=== PATIENT | female | born 1960 | race Caucasian/White ===

== ENCOUNTER 2016-05-23 20:09 | Emergency (ER) | payer OTHER ==
[~2016-05-23] VITALS: Ht 165.1 cm; Wt 63.6 kg
[~2016-05-23 20:09] MED LIST: ESTRACE 1MG1 MG/TAB PO; LORTAB 5/500 501 TAB PO
[2016-05-23 20:17] VITALS: TEMP 98.5
[2016-05-23 20:54] LABS: HEMATOCRIT 37.5 % (37.0-47.0); HEMOGLOBIN 12.7 g/dl (12.5-16.0); MEAN CELL VOLUME 90 fl (80.0-100.0); MEAN CORPUSCULAR HEMOGLOBIN 31 pg (27.0-31.0); MEAN CORPUSCULAR HGB CONC 34 g/dl (33.0-37.0); MEAN PLATELET VOLUME 9.4 fl (7.4-10.4); PLATELET COUNT 140 K/mm3 (130-400); RED BLOOD COUNT 4.17 M/mm3 (4.10-5.30); REDCELL DISTRIBUTION WIDTH-CV 13.1 % (11.5-14.5); WHITE BLOOD COUNT 2.1 K/mm3 (4.8-10.8)
[2016-05-23 20:58] LABS: ADD PATHOLOGY DIFF REVIEW NO
[2016-05-23 21:10] LABS: ALBUMIN 4.3 gm/dL (3.5-5.0); BILIRUBIN,TOTAL 0.9 mg/dL (0.0-1.0); CALCIUM 9.2 mg/dL (8.4-10.2); CREATININE, serum 0.66 mg/dL (0.52-1.25); POTASSIUM 3.5 mmol/L (3.4-5.0); TOTAL PROTEIN 7.5 gm/dL (6.4-8.2)
[2016-05-23 21:14] LABS: BAND 27 % (0-10); NEUTROPHILS 24 % (42.0-75.2); PLATELET ESTIMATE NORMAL (NORMAL); TOTAL CELLS COUNTED 100
[2016-05-23] MEDS ORDERED: ZOFRAN ODT4 MG PO (21:57)
[2016-05-23 23:04] VITALS: BP 112/67; PULSE 58
== END 2016-05-23 23:04 | disposition home or self-care (01) ==
LOC: COL.ER 20:09
PROVIDERS: Family Medicine
DX: J10.89 Influenza due to other identified influenza virus with other manifestations (principal); E86.0 Dehydration
CPT/HCPCS: J1885; J2550; J7030

== ENCOUNTER 2017-03-14 14:17 | Emergency (ER) | payer OTHER ==
[~2017-03-14] VITALS: Ht 165.1 cm; Wt 63.6 kg
[~2017-03-14 14:17] MED LIST changes: +ZOFRAN ODT4 MG PO
[2017-03-14 14:19] VITALS: BP 132/75; PULSE 65; TEMP 99.2
== END 2017-03-14 16:05 | disposition home or self-care (01) ==
LOC: COL.ER 14:17
DX: S96.912A Strain of unspecified muscle and tendon at ankle and foot level, left foot, initial encounter (principal); S86.811A Strain of other muscle(s) and tendon(s) at lower leg level, right leg, initial encounter; W20.8XXA Other cause of strike by thrown, projected or falling object, initial encounter; Y92.009 Unspecified place in unspecified non-institutional (private) residence as the place of occurrence of the external cause

== ENCOUNTER 2017-12-22 11:00 | Emergency (ER) | payer OTHER ==
[~2017-12-22] VITALS: Ht 165.1 cm; Wt 66.8 kg
[2017-12-22 11:06] VITALS: BP 145/84; PULSE 64; TEMP 98.8
[2017-12-22] MEDS ORDERED: TYLENOL W/COD1 UDTAB PO (12:32)
== END 2017-12-22 12:42 | disposition home or self-care (01) ==
LOC: COL.ER 11:00
DX: S39.012A Strain of muscle, fascia and tendon of lower back, initial encounter (principal); V86.59XA Driver of other special all-terrain or other off-road motor vehicle injured in nontraffic accident, initial encounter

== ENCOUNTER 2018-05-13 13:39 | Emergency (ER) | payer BC ==
[~2018-05-13] VITALS: Ht 165.1 cm; Wt 67.3 kg
[~2018-05-13 13:39] MED LIST changes: +TYLENOL W/COD1 UDTAB PO
[2018-05-13 14:14] LABS: BASO % 0.3 % (0.0-2.0); EOS % 0.3 % (0-4.0); GRAN # 6.9 (1.4-6.5); GRAN % 78.3 % (42.2-75.2); HEMATOCRIT 39.5 % (37.0-47.0); HEMOGLOBIN 13.1 g/dl (12.5-16.0); LYMPH # 1.4 (1.2-3.4); LYMPH % 16.3 % (20.0-51.0); MEAN CELL VOLUME 93 fl (80.0-100.0); MEAN CORPUSCULAR HEMOGLOBIN 31 pg (27.0-31.0); MEAN CORPUSCULAR HGB CONC 33 g/dl (33.0-37.0); MEAN PLATELET VOLUME 9.5 fl (7.4-10.4); MONO # 0.4 (0.1-0.6); MONO % 4.3 % (1.7-9.3); PLATELET COUNT 274 K/mm3 (130-400); RED BLOOD COUNT 4.25 M/mm3 (4.10-5.30); REDCELL DISTRIBUTION WIDTH-CV 13.7 % (11.5-14.5)
[2018-05-13 14:23] LABS: ALBUMIN 4.5 gm/dL (3.5-5.0); BILIRUBIN,TOTAL 0.4 mg/dL (0.0-1.0); CALCIUM 9.7 mg/dL (8.4-10.2); CREATININE, serum 0.78 mg/dL (0.52-1.25); POTASSIUM 3.8 mmol/L (3.4-5.0); TOTAL PROTEIN 7.8 gm/dL (6.4-8.2)
[2018-05-13] MEDS ORDERED: NORCO 325 MG-51 TAB PO (15:55)
[2018-05-13 16:00] LABS: PH 6 (5-8); SQUAMOUS EPITHELIAL 0-2 /hpf; URINE APPEARANCE Clear; URINE BACTERIA None Seen /hpf; URINE BILIRUBIN Negative (NEGATIVE); URINE BLOOD Negative (NEGATIVE); URINE COLOR Straw; URINE GLUCOSE Negative (NEGATIVE); URINE KETONE Negative (NEGATIVE); URINE LEUKOCYTE ESTERASE Trace (NEGATIVE); URINE NITRATE Negative (NEGATIVE); URINE PROTEIN(semi-quant) Negative (NEGATIVE); URINE RBC 0-2 /hpf; URINE UROBILINOGEN Negative (NEGATIVE); URINE WBC 0-2 /hpf
[2018-05-13 16:01] VITALS: BP 133/72; PULSE 60
[2018-05-13 16:11] LABS: COLLECTION METHOD CLEAN CATCH
== END 2018-05-13 16:46 | disposition home or self-care (01) ==
LOC: COL.ER 13:39
PROVIDERS: Emergency Medicine
DX: S06.0X0A Concussion without loss of consciousness, initial encounter (principal); S00.93XA Contusion of unspecified part of head, initial encounter; S13.4XXA Sprain of ligaments of cervical spine, initial encounter; Z90.710 Acquired absence of both cervix and uterus; W55.22XA Struck by cow, initial encounter; Y92.009 Unspecified place in unspecified non-institutional (private) residence as the place of occurrence of the external cause
CPT/HCPCS: J2270; J2405; J3010; Q9967

== ENCOUNTER → 2018-06-18 | Outpatient (CLI) | payer BC ==
[~2018-06-18] MED LIST changes: +NORCO 325 MG-51 TAB PO
== END ==
LOC: COL.RAD 08:57
DX: M75.111 Incomplete rotator cuff tear or rupture of right shoulder, not specified as traumatic (principal); M75.101 Unspecified rotator cuff tear or rupture of right shoulder, not specified as traumatic; M85.611 Other cyst of bone, right shoulder
CPT/HCPCS: A9585; Q9967

== ENCOUNTER → 2018-07-11 | Outpatient (CLI) | payer BC | LOC: MC.RAD 14:58 | DX: Z12.31 Encounter for screening mammogram for malignant neoplasm of breast (principal) ==

== ENCOUNTER → 2018-07-17 | Outpatient (CLI) | payer BC | LOC: MC.RAD 11:00 | DX: N63.11 Unspecified lump in the right breast, upper outer quadrant (principal) ==

== ENCOUNTER → 2018-07-17 | Outpatient (CLI) | payer BC | LOC: COL.RAD 12:37 | DX: M25.511 Pain in right shoulder (principal) | CPT/HCPCS: J3301; Q9967 ==

== ENCOUNTER → 2018-07-22 | Outpatient (CLI) | payer BC | LOC: MC.RAD 09:44 | DX: N63.11 Unspecified lump in the right breast, upper outer quadrant (principal); Z98.82 Breast implant status ==

== ENCOUNTER 2018-08-13 08:00 | Day surgery (SDC) | payer BC ==
[~2018-08-13] VITALS: Ht 165.1 cm; Wt 70.0 kg
[2018-08-13 09:02] VITALS: BP 119/57; PULSE 68; TEMP 98.3
--- NOTE | 2018-08-13 09:06 | NUR ---
Patient taken to radiology per wheelchair and IV fluids are infusing.
--- NOTE | 2018-08-13 09:42 | NUR ---
Patient returns to room 3 per wheelchair from radiology and is resting on cart. Family in room. IV fluids infusing.
[2018-08-13] MEDS ORDERED: NORCO 325 MG-51 TAB PO (11:02)
[2018-08-13 11:05] VITALS: BP 97/64; PULSE 65
--- NOTE | 2018-08-13 11:05 | NUR ---
Patient returns to room 3 per cart from PACU and is awake and alert. Temp 97.6 and room air sats 95%. Dressing clean and dry on the right breast. IV fluids infusing and site is free of redness. Temp 97.6 and room air sats 95%. Siderails up x2 and call light in reach. Family in room. Taking few sips of water. Denies pain or nausea at present time.
[2018-08-13 11:20] VITALS: BP 125/64; PULSE 59
--- NOTE | 2018-08-13 11:20 | NUR ---
Resting and is talking with family members.
--- NOTE | 2018-08-13 11:20 | NUR ---
Continues to rest without complaints of pain.
[2018-08-13 11:35] VITALS: BP 140/80; PULSE 57
--- NOTE | 2018-08-13 11:35 | NUR ---
Continues to rest and taking sips of water.
[2018-08-13 11:50] VITALS: BP 141/73; PULSE 58
--- NOTE | 2018-08-13 11:50 | NUR ---
Complains of slight nausea. Medicated with Zofran 4mg IV for slight nausea with movement.
[2018-08-13 12:05] VITALS: BP 131/70; PULSE 60
--- NOTE | 2018-08-13 12:05 | NUR ---
Continues to rest without further nausea. IV fluids infusing.
--- NOTE | 2018-08-13 12:16 | NUR ---
Assisted up to the bathroom and gait is steady. Voids and returns to room. Eating crackers. IV converted to INT.
--- NOTE | 2018-08-13 12:29 | NUR ---
Patient dresses self. Given dismissal instructions and voices understanding of home cares and follow up as scheduled on 08/16/18 at 1345 in the office. Script for [employer] was given to friend to be filled prior to discharge and has returned with this. Instructed to take [employer] with food. Provided office number for questions and concerns.
--- NOTE | 2018-08-13 12:35 | NUR ---
Patient dismissed to home per private vehicle driven by spouse and taken to the front door per wheelchair and assisted into vehicle by RN with instructions in hand.
== END 2018-08-13 12:35 | disposition home or self-care (01) ==
LOC: SDCO 08:00
DX: D05.11 Intraductal carcinoma in situ of right breast (principal); Z80.3 Family history of malignant neoplasm of breast; Z80.41 Family history of malignant neoplasm of ovary; Z90.49 Acquired absence of other specified parts of digestive tract; Z17.0 Estrogen receptor positive status [ER+]
CPT/HCPCS: J0690; J2405; J2704; J3010; J7120

== ENCOUNTER 2018-08-20 08:32 | Day surgery (SDC) | payer BC ==
[~2018-08-20] VITALS: Ht 165.1 cm; Wt 69.0 kg
[2018-08-20 09:27] VITALS: BP 124/76; PULSE 65; TEMP 97.7
[2018-08-20 10:45] VITALS: BP 116/65; PULSE 65; TEMP 97.9
--- NOTE | 2018-08-20 10:45 | NUR ---
The patient arrived back to [facility] from the operating room at this time. The patient appears drowsy but arouses easily to her name. The patient's post operative vital signs were started at this time. The patient's family is at her bedside at this time. Call light is within reach. Will continue to monitor the patient.
[2018-08-20 11:00] VITALS: BP 127/73; PULSE 60
--- NOTE | 2018-08-20 11:00 | NUR ---
The patient reports increased pain at her incision site at this time. The patient's vital signs appear stable. The patient's family requests for her to have some pain medication and some water to sip on. Will continue to monitor the patient.
[2018-08-20 11:15] VITALS: BP 138/76; PULSE 62
--- NOTE | 2018-08-20 11:15 | NUR ---
The patient was given a PRN dose of Morphine 4 mg IV at this time. The patient appears to be tolerating the water well and denies wanting anything further to eat or drink at this time.
[2018-08-20 11:30] VITALS: BP 129/88; PULSE 65
--- NOTE | 2018-08-20 11:30 | NUR ---
The patient agrees to try some vanilla pudding and saltine crackers so she can be given a PRN dose of Rodessa one tab. The patient's family remains at her bedside. Vital signs appear stable. Will continue to monitor the patient.
[2018-08-20 12:00] VITALS: BP 138/70; PULSE 67
--- NOTE | 2018-08-20 12:00 | NUR ---
The patient was given a PRN dose of Hyden one tab at 1145 and appears to be tolerating it well. The patient appears to be resting comfortably on the cart at this time. Call light is within reach. Will continue to monitor the patient.
--- NOTE | 2018-08-20 12:30 | NUR ---
The patient has finished her crackers and pudding and voices a desire to ambulate to the bathroom at this time. The nurse instructed the patient if she was able to void that she could get dressed and notify the staff when she is ready to review her discharge paperwork.
--- NOTE | 2018-08-20 12:40 | NUR ---
The patient was escorted out via wheelchair to a private vehicle by SHERRIE Moyer. The patient's belongings and discharge paperwork were sent with her. The patient's sister is present to drive her home.
== END 2018-08-20 12:40 | disposition home or self-care (01) ==
LOC: SDCO 08:32
DX: D05.11 Intraductal carcinoma in situ of right breast (principal); Z90.49 Acquired absence of other specified parts of digestive tract; Z80.0 Family history of malignant neoplasm of digestive organs; Z79.899 Other long term (current) drug therapy
CPT/HCPCS: J0690; J2270; J2405; J2704; J3010; J7120

== ENCOUNTER → 2018-10-16 | Outpatient (CLI) | payer BC | LOC: COL.RAD 12:36 | DX: M25.511 Pain in right shoulder (principal); G89.11 Acute pain due to trauma | CPT/HCPCS: J3301; Q9967 ==

== ENCOUNTER → 2019-03-13 | Outpatient (CLI) | payer BC | LOC: COL.RAD 10:14 | DX: M19.011 Primary osteoarthritis, right shoulder (principal) | CPT/HCPCS: J3301; Q9967 ==

== ENCOUNTER → 2019-09-02 | Outpatient (CLI) | payer BC | LOC: MC.RAD 13:15 | DX: D05.11 Intraductal carcinoma in situ of right breast (principal) | CPT/HCPCS: G0279 ==

== ENCOUNTER → 2020-09-03 | Outpatient (CLI) | payer BC | LOC: MC.RAD 14:45 | DX: Z12.31 Encounter for screening mammogram for malignant neoplasm of breast (principal) ==

== ENCOUNTER → 2021-11-09 | Outpatient (CLI) | payer BC | LOC: MC.RAD 10:39 | DX: Z12.31 Encounter for screening mammogram for malignant neoplasm of breast (principal); Z85.3 Personal history of malignant neoplasm of breast ==